=== PATIENT | female | born 2000 | race Caucasian/White ===

== ENCOUNTER 2025-07-14 10:12 | Outpatient (CLI) | payer OTHER, SELFPAY ==
--- NOTE | ~2025-07-14 | US_ITS ---
EXAMINATION: US OB /maternal detail DATE: 07/14/2025 10:49 INDICATION: Anatomy screening TECHNIQUE: Multiple obstetric sonographic images performed. FINDINGS: There is a single living fetus in breech presentation. The placenta is anterior without placenta previa. Amniotic fluid volume is normal. RUBINA is subjectively within normal limits. cardiac activity and movement is noted with a heart rate of 151 beats per minute. The following anatomy was identified as normal: 4 chamber heart-not identified. 3 vessel cord cord insertion kidneys urinary bladder stomach spine diaphragm ventricles cisterna magna cerebellum The following biometric data were obtained: BPD: 4.16 cm corresponds to gestational age 18 weeks 6 days. Head circumference: 15.8 cm corresponds to gestational age 18 weeks 5 days. Abdominal circumference: 13.38 cm corresponds to gestational age 18 weeks 6 days. Femur length: 2.85 cm corresponds to gestational age 18 weeks 5 days. Head circumference to abdominal circumference ratio: 1.18 Estimated weight: 258 grams +/- 39 grams using Hadlock method. IMPRESSION: 1: Single living intrauterine with an estimated gestational age of 18weeks 6days by current ultrasound measurements.. 2. The 4 chamber heart was not identified. A follow-up OB ultrasound is recommended. 3. Otherwise, normal survey. Reviewed, dictated and finalized at location Q. IMPRESSION: 1: Single living intrauterine with an estimated gestational age of 18 weeks 6days by current ultrasound measurements.. 2. The 4 chamber heart was not identified. A follow-up OB ultrasound is recomme nded. 3. Otherwise, normal survey.
== END 2025-07-14 10:13 | disposition home or self-care (01) ==
PROVIDERS: PCP Obstetrics & Gynecology Gynecology; Visit Provider Obstetrics & Gynecology Gynecology
DX: Z36.3 Encounter for antenatal screening for malformations (principal)
CPT/HCPCS: 76805

== ENCOUNTER 2025-08-11 12:59 | Outpatient (CLI) | payer OTHER, SELFPAY ==
--- NOTE | ~2025-08-11 | US_ITS ---
EXAM/PROCEDURE: US OB limited HISTORY: ANATOMY F/U COMPARISON: July 132024 TECHNIQUE: Directed evaluation of four-chamber view of the heart. FINDINGS: A single viable intrauterine gestation is present with heart rate of 159 bpm Presentation: Breech Placenta: Anterior with no gross previa or abruption. Amniotic fluid volume grossly within normal limits. EGA by dates 22 weeks 6 days EDC by dates December 09, 2025 Static four-chamber view of the heart is nondiagnostic. On cinematic imaging of the outflow tracts, there appear to be 4 distinct chambers. IMPRESSION: Nondiagnostic review of the four-chamber views of the heart, although the 4 chambers do appear distinct on cinematic review of the outflow tracts. Recommend third trimester follow-up reevaluation. Reviewed, dictated and finalized at location A. [facility]AD[facility] IMPRESSION: Nondiagnostic review of the four-chamber views of the heart, althou gh the 4 chambers do appear distinct on cinematic review of the outflow tracts. Recommend third trimester follow-up reevaluation.
== END 2025-08-11 13:00 | disposition home or self-care (01) ==
LOC: MICIMG 12:59
PROVIDERS: PCP Obstetrics & Gynecology Gynecology; Visit Provider Obstetrics & Gynecology Gynecology
DX: Z36.2 Encounter for other antenatal screening follow-up (principal)
CPT/HCPCS: 76815